=== PATIENT | female | born 1945 | race Caucasian/White ===

== ENCOUNTER → 2024-11-21 14:29 | Outpatient (REF) | payer MEDICARE, OTHER, SELFPAY | LOC: RCS 14:29 | PROVIDERS: ATTENDING PHYSICIAN Internal Medicine Interventional Cardiology; FAMILY PHYSICIAN Family Medicine | DX: I35.0 Nonrheumatic aortic (valve) stenosis (principal) | CPT/HCPCS: 93306 ==